=== PATIENT | female | born 1960 | race Asian ===

== ENCOUNTER 2019-10-20 13:15 | Emergency (ER) | payer SELFPAY ==
[~2019-10-20] VITALS: Ht 162.6 cm; Wt 68.2 kg
[2019-10-20 13:30] VITALS: BP 150/95
== END 2019-10-20 13:51 | disposition left against medical advice (07) ==
LOC: EMS 13:16
DX: K59.00 Constipation, unspecified (principal); Z53.21 Procedure and treatment not carried out due to patient leaving prior to being seen by health care provider